=== PATIENT | male | born 1950 | race African-American/Black ===

== ENCOUNTER 2018-01-06 15:46 | Emergency (ER) | payer MEDICARE | END 2018-01-06 20:00 | disposition left against medical advice (07) | LOC: D.ER 15:46 | DX: M79.1 Myalgia (principal) ==

== ENCOUNTER 2020-04-07 10:19 | Observation (INO) | payer MEDICARE ==
[2020-04-07] VITALS (10 sets, daily range): BP systolic 161–222; BP diastolic 88–136; BMI 22.2
[~2020-04-07] VITALS: Ht 175.3 cm; Wt 68.0 kg
[2020-04-07 10:46] LABS: HEMOGLOBIN 14.8 g/dL (13.5-17.5); LYMPHOCYTES 47.5 % (15-50); MCH 28.1 pg (26.0-34.0); MCHC 33.6 g/dL (31.0-37.0); MCV 83.5 fL (80.0-100.0); MEAN PLATELET VOLUME 8.6 fL (7.4-10.4); NEUTROPHILS 43.9 % (40-80); RBC 5.27 10x6/uL (4.20-6.10); RDW 16.6 % (11.5-14.5); WBC 4.4 10x3/uL (4.8-10.8)
[2020-04-07 10:49] LABS: PLATELET COUNT 250 10x3/uL (130-400)
[2020-04-07 10:55] LABS: CALC OSMOLALITY 262 mosm/kg (275-300); CALCIUM 8.9 mg/dL (8.5-10.1); CHLORIDE - SERUM 94 mmol/L (98-107); CREATININE - SERUM 1.2 mg/dL (0.6-1.3); POTASSIUM - SERUM 4.1 mmol/L (3.5-5.1); SODIUM 131 mmol/L (136-145); UREA NITROGEN 9 mg/dL (7-18); eGFR NON AFRICAN AMERICAN 64 mL/min (90-120)
[2020-04-07 10:56] LABS: GLUCOSE 116 mg/dL (74-106)
[2020-04-07 11:12] LABS: ALBUMIN 3.8 g/dL (3.4-5.0); ALKALINE PHOSPHATASE 98 U/L (30-120); ALT (SGPT) 25 U/L (10-68); AMYLASE - SERUM 180 U/L (25-115); BILIRUBIN - TOTAL 0.38 mg/dL (0.2-1.3); CKMB 2.7 U/L (0.0-3.6); CREATINE KINASE 160 UL (21-232); LIPASE 99 U/L (73-393); PRO BNP 315 pg/mL (0-125); PROTEIN - SERUM 8.2 g/dL (6.4-8.2); TROPONIN-I < 0.017 ng/mL (0.000-0.060)
[2020-04-07 11:13] LABS: APTT 32.7 SECONDS (22.8-39.4); INR 0.92 (0.85-1.17); PROTIME 12.3 SECONDS (11.6-15.0)
[2020-04-07 11:14] LABS: D-DIMER-QUANTITATIVE 0.63 ug/mLFEU (0.20-0.54)
--- NOTE | 2020-04-07 13:09 | NUR ---
MEAL TRAY PROVIDED
--- NOTE | 2020-04-07 15:24 | NUR ---
RECIVED TO ROOM 2117, FROM ER. ADMIT ASSESSMENT PER RN
--- NOTE | 2020-04-07 17:12 | NUR ---
WITHOUT CHANGES OR DISRESS NOTED AT THIS TIME. DENIES NEEDS
--- NOTE | 2020-04-07 19:45 | NUR ---
REPORT RECIEVED AND INITIAL ROUNDS COMPLETED. PT ALERT/ORIENTED AND RESTING IN ROOM. AMBULATORY. SR/80 PER TELEMETRY. SALINE LOCK TO RFA. MONITORING FOR POTENTIAL DT'S RELATED TO ETOH ABUSE. CPOC.
--- NOTE | 2020-04-07 19:47 | NUR ---
ASSESSMENT COMPLETE NAD NOTED WILL CONTINUE TO MONITOR
[2020-04-07 22:33] LABS: CKMB 1.6 U/L (0.0-3.6); CREATINE KINASE 117 UL (21-232); TROPONIN-I < 0.017 ng/mL (0.000-0.060)
--- NOTE | 2020-04-07 22:59 | NUR ---
BEDTIME MEDS GIVEN. PT REQUESTING SANDWICH TRAY AND ONE PROVIDED. CPOC.
[2020-04-08 00:01] VITALS: BP 181/99
--- NOTE | 2020-04-08 00:12 | NUR ---
BP ELEVATED. PRN CLONIDINE GIVEN. OTHER NEWLY ORDERED MEDS GIVEN. IVF NS @ 75ML/HR STARTED. PT WATCHING TV. CPOC.
[2020-04-08 04:00] VITALS: BP 193/113
[2020-04-08 06:08] LABS: HEMATOCRIT 38.1 % (42.0-54.0); HEMOGLOBIN 13.2 g/dL (13.5-17.5); LYMPHOCYTES 50.6 % (15-50); MCH 29.3 pg (26.0-34.0); MCHC 34.6 g/dL (31.0-37.0); MCV 84.7 fL (80.0-100.0); MEAN PLATELET VOLUME 9.1 fL (7.4-10.4); NEUTROPHILS 36.9 % (40-80); PLATELET COUNT 215 10x3/uL (130-400); RDW 16.5 % (11.5-14.5); WBC 4.4 10x3/uL (4.8-10.8)
[2020-04-08 06:57] LABS: ALBUMIN 3.2 g/dL (3.4-5.0); ALKALINE PHOSPHATASE 85 U/L (30-120); ALT (SGPT) 19 U/L (10-68); BILIRUBIN - TOTAL 0.32 mg/dL (0.2-1.3); CALC OSMOLALITY 273 mosm/kg (275-300); CALCIUM 8.7 mg/dL (8.5-10.1); CARBON DIOXIDE 27.3 mmol/L (21.0-32.0); CHLORIDE - SERUM 101 mmol/L (98-107); CHOL - HDL RATIO 1.5 ratio (2.3-4.9); CHOLESTEROL, TOTAL 153 mg/dL (0-200); CKMB 1.2 U/L (0.0-3.6); CREATINE KINASE 94 UL (21-232); CREATININE - SERUM 1.3 mg/dL (0.6-1.3); GLUCOSE 102 mg/dL (74-106); HDL CHOLESTEROL 101 mg/dL (32-96); LDL CHOLESTEROL 42 mg/dL (0-100); LDL-HDL RATIO 0.4 ratio (1.5-3.5); MAGNESIUM - SERUM 2.1 mg/dL (1.8-2.4); PHOSPHOROUS 4.6 mg/dL (2.5-4.9); POTASSIUM - SERUM 4.4 mmol/L (3.5-5.1); PROTEIN - SERUM 6.7 g/dL (6.4-8.2); SODIUM 135 mmol/L (136-145); TRIGLYCERIDE 50 mg/dL (30-200); TROPONIN-I < 0.017 ng/mL (0.000-0.060); UREA NITROGEN 24 mg/dL (7-18); eGFR NON AFRICAN AMERICAN 58 mL/min (90-120)
--- NOTE | 2020-04-08 07:15 | NUR ---
RECEIVED PT IN BED EYES CLOSED RESP UNLABORED SKIN W/D COLOR WNL NAD NOTED
[2020-04-08 08:36] VITALS: BP 123/75
[2020-04-08 10:08] VITALS: Ht 175.3 cm; Wt 68.0 kg
[2020-04-08 16:38] VITALS: BP 143/69
[2020-04-08 20:00] VITALS: BP 124/82
--- NOTE | 2020-04-08 20:00 | NUR ---
REPORT RECIEVED AND INITIAL ROUNDS COMPLETED. PT RESTING IN BED. ALERT/ORIENTED. DENIES PAIN OR DISCOMFORT. SR PER TELEMETRY. NONLABORED RESPIRATIONS ON ROOM AIR. NO IVF PER PT REQUEST. PIV TO RFA SALINE LOCKED. PT EATING AND DRINKING WELL. BP WNL. CPOC.
--- NOTE | 2020-04-08 22:30 | NUR ---
BEDTIME MED GIVEN. BEDTIME SNACK PROVIDED. PT WATCHING TV. SR PER TELEMETRY. CPOC.
[2020-04-09] VITALS: BP 155/93
--- NOTE | 2020-04-09 01:48 | NUR ---
RESTING IN BED WITH NO DISTRESS. NONLABORED RESPIRATIONS. CALL LIGHT IN REACH. CPOC.
[2020-04-09 04:00] VITALS: BP 154/84
--- NOTE | 2020-04-09 04:31 | NUR ---
PT RESTING IN BED. ROUSES EASILY. NO NEEDS VOICED. CPOC.
--- NOTE | 2020-04-09 05:38 | NUR ---
PT IS LABILE MOOD. REFUSED TO [employer]METICIAN DRAW AM BLOODWORK AND IS NOW DEMANDING WATER TO DRINK. WATER PROVIDED.
--- NOTE | 2020-04-09 05:51 | NUR ---
CALLED TO ROOM WHERE PT WAS SAYING HE COULD NOT BREATH. WRITHING IN BED, CLUTCHING HIS CHEST AND DEMANDING HELP AND SOMETHING TO DRINK. ON THE PHONE WITH UNKNOWN PERSON TELLING THEM THAT SOMETHING WAS ABOUT TO HAPPEN AND HE ALWAYS HATED THIS PLACE. NURSE ATTEMPTING TO EVALUATE AND ASSESS AND HE CONTINUES TO TALK LOUDLY TO PERSON ON PHONE. PLACED ON O2 @ 2 L/NC FOR AND SAT UP TO 93%. ADMINISTERED IV ATIVAN 1MG TO HELP HIM CALM DOWN/RELAX. CALLED TO RESPIRATORY FOR A PRN BREATHING TREATMENT. AUSCULATATED EXPIRATORY WHEEZING TO BILATERAL LOWER LOBES. ST W/ BBB 107 AT THIS TIME.
--- NOTE | 2020-04-09 06:47 | NUR ---
PT'S SISTER CALLED. PT OKAYED SPEAKING WITH HER ON PHONE AND PROVIDING HER WITH HIS PASSCODE. UPDATED SISTER ON PATIENT STATUS. HE IS NOW CALMER SINCE RECIEVING ATIVAN AND CURRENTLY RT IS IN ROOM AND ADMINISTERING BREATHING TREATMENT.
[2020-04-09 08:06] VITALS: BP 176/89
--- NOTE | 2020-04-09 08:59 | NUR ---
AM MEDS GIVEN AT THIS TIME. PT IN BED, EATING BREAKFAST, DENIES ANY NEEDS AT THIS TIME. PT A/O X4, RESP EVEN AND NONLABOBORED ON 2L NC. RT FA IV SLCALL LIGHT IN REACH, BEDSIDE RAILS X2, NAD NOTED,W ILL CONTINUE TO MONITOR.
--- NOTE | 2020-04-09 11:55 | NUR ---
PT RESTING COMFORTABLY FIXING TO EAT LUNCH, DENIES ANY NEEDS AT THIS TIME. CALL LIGHT IN REACH, NAD NOTED.
--- NOTE | 2020-04-09 12:01 | NUR ---
PT'S DAUGHTER CALLED AND INFORMED THIS NURSE THAT PT'S BREATHING IS STILL NOT ANY BETTER. THAT HE IS STILL WHEEZING. INFORMED DAUGHTER THAT I WAS JUST IN PT'S ROOM AND PT DID NOT SAY ANYTHING ABOUT STILL BEING SOB. AFTER GETTING OFF THE OFF WITH PT'S DAUGHTER WENT TO CHECK ON PT AND ASKED HIM IF HIS BREATHING WAS STILL NOT BETTER. PT STATED NO AND THAT HE WANTED ANOTHER BREATHING TREATMENT. NOFIED RAPHAEL WITH RESP. PT DID NOT SEEM IN ANY DISTRESS, REFUSED HIS LUNCH STATED " THAT'S THE SAME DAMN THING I GOT YESTERDAY FOR LUNCH". ASKED PT IF HE WANTED ME TO ORDER HIM SOMETHING ELSE AND PT STATED "NO". PT DENIES ANY OTHER NEEDS AT THIS TIME. CALL LIGHT IN REACH, NAD NOTED, WILL CONTINUE TO MONITOR.
[2020-04-09 12:08] VITALS: BP 157/78
[2020-04-09 15:43] VITALS: BP 149/81
--- NOTE | 2020-04-09 16:41 | NUR ---
PROVIDED VERBAL AND WRITTEN DISCHARGE TEACHING. PT VERBALIZED UNDERSTANDING REGARDING TEACHING. PT DENIES ANY CONCERN OR NEEDS REGARIDNG TEACHING. PT WILL NOTIFY NURSE WHEN READY FOR WHEELCHAIR.
--- NOTE | 2020-04-09 16:57 | NUR ---
PT LEFT UNIT VIA WHEELCHAIR, WITH ALL BELONGIGNS, NAD NOTED.
== END 2020-04-09 16:59 | disposition home or self-care (01) ==
LOC: D.ER 10:19 → D.M2 13:16 → OBSVTIME 13:16 → D.M2 13:16
PROVIDERS: Family Medicine; ADMIT Internal Medicine Nephrology; ATTEND Internal Medicine Nephrology
DX: R07.89 Other chest pain (principal); J43.9 Emphysema, unspecified; F10.20 Alcohol dependence, uncomplicated; F17.203 Nicotine dependence unspecified, with withdrawal; I10 Essential (primary) hypertension; N17.9 Acute kidney failure, unspecified; D64.9 Anemia, unspecified; E87.1 Hypo-osmolality and hyponatremia